=== PATIENT | female | born 1995 | race African-American/Black ===

== ENCOUNTER 2017-01-25 15:09 | Inpatient (IN) ==
[2017-01-25] MEDS ORDERED: MEPERIDINE 50 MG/1 ML VIAL IV PRN (15:24)
[2017-01-25] MEDS ORDERED: ONDANSETRON 4 MG/2 ML VIAL IV PRN (15:24)
[2017-01-25] MEDS ORDERED: DINOPROSTONE VAG GEL 10 MG SYRINGE VAG ONE (15:26)
[2017-01-25] MEDS: LACTATED RINGERS 1,000 ML IV SCH ×2 (15:47→23:05)
[2017-01-25 16:05] LABS: Basophils % 0.3 % (0.0-0.8); Eosinophils # 0.2 10*3/uL (0.0-0.87); Hematocrit 30.3 VOL% (35.7-47.0); Hemoglobin 9.7 GM/DL (12.0-16.0); Immature Granulocytes % 0.5 %; Immature Granulocytes Absolute 0.05 #; Lymphocytes # 2.1 10*3/uL (1.4-4.0); Lymphocytes % 21.2 % (21.3-54.2); Mean Corpuscular Hemoglobin 29 PG (27-34); Mean Corpuscular Volume 89.1 FL (87-102); Mean Platelet Volume 11.3 FL (9.6-12.0); Monocytes # 0.6 10*3/uL (0.11-0.8); Monocytes % 6.3 % (1.7-12.7); Neutrophils # 6.7 10*3/uL (1.4-7.4); Neutrophils % 69.7 % (38.7-73.9); Platelet Count 224 T/CUMM (130-400); Red Cell Distribution Width 14.6 % (9.3-17.3); White Blood Count 9.7 T/CUMM (4-12)
[2017-01-25] MEDS ORDERED: AMPICILLIN INJ 2,000 MG in SODIUM CHLORIDE 0.9% 100 ML IV ONE (16:43)
[2017-01-25 16:47] LABS: Albumin 2.9 G/DL (3.4-5.0); Bilirubin,Total 1.1 MG/DL (0.2-1.0); Calcium 9.2 MG/DL (8.5-10.1); Osmolality,Calculated 275.4 MOS/KG (273-304); Potassium 3.6 MMOL/L (3.5-5.1); Total Protein 7.1 G/DL (6.4-8.3)
--- NOTE | 2017-01-25 17:20 | OB/GYN History & Physical ---
History of Present Illness Chief complaint: For elective induction of labor due to term . History of present illness: Ms. Endy Michelle is a 21 year old female 2 para 1 living 1. Her MANSOOR is for an estimated gestational age of 39 weeks. She presents for elective induction of labor due to term . The risks and benefits of been thoroughly discussed with this patient significant other, plan of care has been discussed with Dr. Narayanan and all parties are in agreement plan. The patient received her care at the [facility] and she received routine care and her course was uneventful. She has had 1 previous vaginal delivery of a liveborn that weighed 9 pounds and she reported no complications with that . labs: She is O+, rubella is immune, RPR is nonreactive, hepatitis B negative, HIV negative, GBS culture negative review of systems is negative with exception of above. Home Medications Medication Instructions Recorded Confirmed Type No Known Home Medications [No 12/05/16 01/25/17 History Known Home Medications] Allergies Allergy/AdvReac Type Severity Reaction Status Date / Time No Known Allergies Allergy Verified 01/25/17 15:22 12 point system: reviewed and no additional remarkable complaints except as stated Medical,Surgical,& Family Hx - Medical History Medical History: noncontributory - Surgical History Surgical History: noncontributory Reproductive Surgeries: Patient denies;: Gynecologic Surgery - Family History Family History: Reports;: Family Diabetes (mother), Family Heart Disease (mother ), Family Hypertension (mother) Denies;: Family Anesthesia Reaction, Family Hematology, Family Psychiatric Problems, Family Stroke, Additional Family History - Social History Smoking Status: Never smoker Frequency of Alcohol Use: None Type of Drug Use: Marijuana (Stopped when she found that she was ) Marital Status: Single Lives With:: Significant Other Functional capacity: independent ambulation Exam RN CLINICAL DOCUMENTATION - Constitutional Vitals: Vital Signs Temp Pulse Resp BP Pulse Ox 01/25/17 16:00 97.8 F 86 18 123/66 100 General appearance: no acute distress - Antepartum / Post Antepartum Exam Cervix - Dilatation: 1 cm Effacement: 50% Station: -2 Rupture: intact Presentation: vtx Heart Rate: 140-150s Abdomen obstetrics: Present: bowel sounds normal Vagina: Present: normal moisture Uterus exam: Present: enlarged Anus/Rectum: Present: normal perianal skin - Respiratory Respiratory exam: Present: clear to auscultation bilaterally - Cardiovascular Cardiovascular exam: Present: regular rate and rhythm - GI/Abdominal GI/Abdominal exam: Present: normal bowel sounds, soft - Extremities Exam Extremities exam: Present: normal inspection - Back Exam Back exam: Present: normal inspection - Neurological Exam Neurological exam: Present: alert, oriented X3 - Psychiatric Psychiatric exam: Present: normal affect, normal mood - Skin Skin exam: Present: normal color, warm Assessment and Plan (1) 39 weeks gestation of Status: Acute Assessment and plan: Admit Prostin gel per protocol IV Pitocin per protocol if indicated Epidural anesthesia if desired Artificial rupture membranes when appropriate Internal monitors if indicated Anticipate Current Visit: Yes Results - Labs CBC & BMP: 01/25/17 15:53 01/25/17 15:53
[2017-01-25] MEDS ORDERED: AMPICILLIN INJ 1,000 MG in SODIUM CHLORIDE 0.9% 100 ML IV SCH (20:45)
[2017-01-25] MEDS: BUTORPHANOL 2 MG/ML VIAL IV PRN (23:05)
[2017-01-26] MEDS ORDERED: OXYTOCIN/LR 20 UNIT/1,000 ML BAG IV SCH (02:00)
[2017-01-26] MEDS: BUTORPHANOL 2 MG/ML VIAL IV PRN (03:55)
[2017-01-26] MEDS: LACTATED RINGERS 1,000 ML IV SCH (04:08)
[2017-01-26] MEDS ORDERED: diphenhydrAMINE 50 MG/1 ML VIAL IV PRN (07:44)
[2017-01-26] MEDS ORDERED: FAMOTIDINE 20 MG/2 ML VIAL IV ONE (07:44)
[2017-01-26] MEDS ORDERED: ePHEDrine 50 MG/ML AMP IV PRN (07:44)
[2017-01-26] MEDS ORDERED: hydrOXYzine HCL 25 MG/1 ML VIAL IM PRN (07:44)
[2017-01-26] MEDS ORDERED: CITRIC ACID/SODIUM CITRATE 30 ML UDCUP PO ONE (07:44)
[2017-01-26] MEDS ORDERED: fentaNYL 2 MCG/ROPIV 0.2% EPID 150 ML EPIDURAL SCH (07:44)
--- NOTE | 2017-01-26 14:52 | Event Note ---
HPI: Ms. Michelle presented to the labor department for elective induction of labor due to term . She received instructions for her induction. The risk and benefits were thoroughly discussed with the patient and plan of care was discussed with Dr. Narayanan, all parties were in agreement plan. Stage I: The patient was admitted she received IV fluids and Prostin gel per protocol. She progressed in labor throughout the night with a CAT 1 tracing. She was eventually started on IV Pitocin per protocol and continue to progress in labor with no complications. The patient subsequently received an epidural for pain control. Artificial rupture of membranes was performed with clear fluid noted. The patient continued to progress in labor with no complications. She had an uneventful course of labor. Stage II: The patient was complete complain of pressure and strong desire to push. She pushed for approximately 10 minutes after which time the 's head was delivered. The mouth and nose were suctioned on the perineum. The remainder the infant was delivered at 1440, a viable male was noted. Apgars were 8 at 1 minute and 9 at 5 minutes. The was placed on the mom' s abdomen for skin to skin bonding. weight was 7 pounds and 12 ounces. A cord pH was obtained and sent to the lab. Stage III: A spontaneous delivery of a Cano placenta with a three-vessel cord noted. The placenta was further examined and appear to be grossly intact with the true knot noted. The vagina and cervix was inspected with no tears or lacerations noted. At the time of dictation mother and baby are in stable condition.
[2017-01-26] MEDS ORDERED: BUTALBITAL/ACETAMIN/CAFFEINE 50-325-40 MG TABLET PO ONE (15:30)
--- NOTE | 2017-01-26 15:46 | Anesthesia Post-Op ---
Anesthesia Post OP - Post Ansesthetic Evaluation Patient seen in post op: Yes Resp: within normal limits CV: within normal limits Mental: within normal limits Temp: within normal limits [id number]: within normal limits Nausea and Vomiting: within normal limits Pain: within normal limits
[2017-01-26] MEDS ORDERED: MEASLES/MUMPS/RUBELLA VACCINE 0.5 ML VIAL SUBCUT ONE (16:21)
[2017-01-26] MEDS ORDERED: ACETAMINOPHEN 325 MG TABLET PO PRN (16:21)
[2017-01-26] MEDS ORDERED: BISACODYL 10 MG SUPP RECTAL PRN (16:21)
[2017-01-26] MEDS ORDERED: WITCH HAZEL PADS 100/JAR TOP PRN (16:21)
[2017-01-26] MEDS ORDERED: LANOLIN 50% CREAM 0.3 OZ TUBE TOP PRN (16:21)
[2017-01-26] MEDS ORDERED: BENZOCAINE 20%/MENTHOL 0.5% SPRAY 56 GM CAN TOP PRN (16:21)
[2017-01-26] MEDS ORDERED: DIPH/TET/ACEL PERT BOOSTER VACCINE 0.5 ML VIAL IM ONE (16:21)
[2017-01-26] MEDS ORDERED: RHO(D) IMMUNE GLOBULIN 300 MCG SYRINGE IM ONE (16:21)
[2017-01-26] MEDS ORDERED: oxyCODONE/ACETAMINOPHEN 5-325 MG TABLET PO PRN (16:21)
[2017-01-26] MEDS ORDERED: HYDROCORTISONE 2.5% RECTAL CREAM 30 GM TUBE TOP PRN (16:21)
[2017-01-26] MEDS: IBUPROFEN 800 MG TABLET PO PRN (19:40)
[2017-01-26] MEDS ORDERED: HYDROmorphone 2 MG/1 ML VIAL IV PRN (19:51)
[2017-01-26] MEDS: DOCUSATE SODIUM 100 MG CAPSULE PO SCH (21:33)
[2017-01-27] MEDS: BUTALBITAL/ACETAMIN/CAFFEINE 50-325-40 MG TABLET PO SCH ×3 (00:24→16:35)
[2017-01-27] MEDS: oxyCODONE/ACETAMINOPHEN 5-325 MG TABLET PO PRN ×3 (04:22→21:24)
[2017-01-27 06:23] LABS: Basophils % 0.2 % (0.0-0.8); Eosinophils # 0.3 10*3/uL (0.0-0.87); Eosinophils % 1.7 % (0.00-10.9); Hematocrit 28.5 VOL% (35.7-47.0); Hemoglobin 9.2 GM/DL (12.0-16.0); Immature Granulocytes % 0.5 %; Immature Granulocytes Absolute 0.08 #; Lymphocytes # 3.4 10*3/uL (1.4-4.0); Lymphocytes % 21.3 % (21.3-54.2); Mean Corpuscular HGB Conc 32.3 GM/DL (32-36); Mean Corpuscular Hemoglobin 29 PG (27-34); Mean Corpuscular Volume 89.3 FL (87-102); Mean Platelet Volume 11.6 FL (9.6-12.0); Monocytes # 1.5 10*3/uL (0.11-0.8); Monocytes % 9.3 % (1.7-12.7); Neutrophils # 10.8 10*3/uL (1.4-7.4); Platelet Count 200 T/CUMM (130-400); Red Blood Count 3.19 MC/CUMM (3.8-5.5); Red Cell Distribution Width 14.6 % (9.3-17.3); White Blood Count 16.1 T/CUMM (4-12)
[2017-01-27] MEDS: IBUPROFEN 800 MG TABLET PO PRN ×2 (08:38→14:42)
[2017-01-27] MEDS: FERROUS SULFATE 325 MG TABLET PO SCH ×2 (08:39→21:23)
[2017-01-27] MEDS: DOCUSATE SODIUM 100 MG CAPSULE PO SCH ×2 (08:39→21:23)
--- NOTE | 2017-01-27 09:03 | OB/GYN Progress Note ---
Assessment and Plan (1) 39 weeks gestation of Status: Acute Assessment and plan: Admit Prostin gel per protocol IV Pitocin per protocol if indicated Epidural anesthesia if desired Artificial rupture membranes when appropriate Internal monitors if indicated Anticipate Current Visit: Yes (2) Vaginal delivery Status: Acute Assessment and plan: Initiate routine orders. 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 Bonding well with . Exam [employer] REPRESENTATIVE - Constitutional Vitals: Vital Signs Temp Pulse Resp BP Pulse Ox 01/27/17 07:47 98.8 F 63 18 127/70 100 01/27/17 07:00 18 01/27/17 06:00 16 01/27/17 04:22 97.9 F 58 L 16 125/75 97 01/27/17 03:00 18 01/27/17 02:00 18 01/27/17 01:24 18 01/27/17 00:24 98.1 F 60 20 130/74 97 01/26/17 23:00 18 01/26/17 19:40 98.8 F 91 H 20 122/70 98 01/26/17 19:00 84 20 130/78 100 01/26/17 18:00 82 20 132/72 100 01/26/17 17:00 89 20 138/80 100 01/26/17 16:30 96 H 20 134/84 100 01/26/17 16:00 99.1 F 80 18 131/78 General appearance: no acute distress - Antepartum / Post Post Exam Breast: bilateral: normal Abdomen obstetrics: Present: bowel sounds normal Vagina: Present: normal moisture, discharge (Light lochia rubra) Uterus exam: Present: enlarged (Fundus firm and midline) Anus/Rectum: Present: normal perianal skin - Head Head exam: Present: normal inspection - Respiratory Respiratory exam: Present: clear to auscultation bilaterally Results - Labs CBC & BMP: 01/27/17 06:03 01/25/17 15:53
[2017-01-28] MEDS: BUTALBITAL/ACETAMIN/CAFFEINE 50-325-40 MG TABLET PO SCH ×2 (00:25→08:29)
[2017-01-28] MEDS: IBUPROFEN 800 MG TABLET PO PRN ×4 (00:25→19:52)
[2017-01-28] MEDS: oxyCODONE/ACETAMINOPHEN 5-325 MG TABLET PO PRN ×2 (03:43→23:00)
[2017-01-28] MEDS: FERROUS SULFATE 325 MG TABLET PO SCH ×2 (08:29→20:30)
[2017-01-28] MEDS: DOCUSATE SODIUM 100 MG CAPSULE PO SCH ×2 (08:29→20:30)
[2017-01-28] MEDS: ACETAMINOPHEN/CODEINE 300-30 MG TABLET PO PRN (10:36)
[2017-01-28] MEDS ORDERED: MAGNESIUM HYDROXIDE SUSP 30 ML UDCUP PO PRN (12:49)
[2017-01-28] MEDS ORDERED: SODIUM CHLORIDE 0.9% 1,000 ML IV ONE (13:30)
[2017-01-28] MEDS ORDERED: MEPERIDINE 50 MG/1 ML VIAL IV PRN (13:31)
[2017-01-28] MEDS ORDERED: PROMETHAZINE 25 MG/1 ML VIAL IM PRN (13:32)
--- NOTE | 2017-01-28 13:42 | Progress Note ---
Family Medicine PN Sub Interval history: Status post vaginal , second postoperative day patient complains of a spinal headache, she was evaluated by anesthesia and felt as though that did not fit the appropriate criteria for this. However patient still complains of pressure in neck discomfort. Will hydrate, initiate Imitrex, and analgesic as appropriate. Possible discharge in the a.m., if symptoms do not improve we will have anesthesia reevaluate. Exam (Progress Note) - Constitutional Vitals: Period Temp Pulse Resp BP Sys/Barkley Pulse Ox Last 24 Hr 97.7 F-99 F 61-77 16-20 114-128/55-88 97-99 Results - Labs CBC & BMP: 01/27/17 06:03 01/25/17 15:53 Quality Measures - VTE Contraindication to Pharmacological VTE Prophylaxis: Clinical assessment deems Pt at low risk, no prophalaxis needed Specialty Discharge - Follow Up or Referrals Follow up with: Giselle Narayanan MD [Physician] - 03/07/17 2:00 pm
[2017-01-28] MEDS: SODIUM CHLORIDE 0.9% 1,000 ML IV SCH (19:27)
[2017-01-29] MEDS: SODIUM CHLORIDE 0.9% 1,000 ML IV SCH (03:39)
[2017-01-29] MEDS: ACETAMINOPHEN/CODEINE 300-30 MG TABLET PO PRN (04:36)
[2017-01-29] MEDS: IBUPROFEN 800 MG TABLET PO PRN ×2 (04:36→12:28)
[2017-01-29 08:29] VITALS: BP 113/55
[2017-01-29] MEDS: DOCUSATE SODIUM 100 MG CAPSULE PO SCH (08:58)
[2017-01-29] MEDS: FERROUS SULFATE 325 MG TABLET PO SCH (08:58)
--- NOTE | 2017-01-29 11:53 | Discharge Summary ---
Hospital Course - Hospital Course Hospital Course: Ms. Michelle presented to the labor department for elective induction of labor due to term . She subsequently delivered a viable with no complications during her labor. However the patient had an epidural and had a suspected spinal headache. She was treated with caffeine and analgesics. Her symptoms have improved. She is bonding well with her infant. Her vital signs and lab values are stable. Her breasts are slightly engorged and she no longer desires to breast-feed therefore she will be discharged home with po antibiotics due to her prior history of mastitis. Her fundus is firm and midline. Her perineum is intact. Her bleeding is minimal with no odor. Contraception options has been discussed with this patient and she desires the Depo-Provera. She will be discharged to home with prescriptions for pain and a follow-up appointment in our office. Diagnosis - Discharge Diagnosis (1) 39 weeks gestation of Status: Acute (2) Vaginal delivery Status: Acute Specialty Discharge - Follow Up or Referrals Follow up with: Giselle Narayanan MD [Physician] - 03/07/17 2:00 pm Discharge Plan - Discharge Data Disposition: Disch To Home/Self Care Condition at Discharge: Stable Discharge Diet: advance to your usual diet, regular diet Activity: resume usual activities as tolerated Hygiene: no restrictions Weight Bearing at Discharge: weight bear as tolerated Driving: no restrictions Contact your physician if you experience:: fever over 101, Redness or swelling, Shortness of breath, pain uncontrolled by pain medications - Discharge Medications New Acetamin/Codeine 300-30 Tab [Tylenol/Codeine #3] 2 tablet PO Q4H PRN #30 tablet PRN Reason: Pain Mild (1-3) cephALEXin [Keflex] 500 mg PO Q6HR #30 capsule Ibuprofen Tab [Motrin Tab] 800 mg PO Q6H PRN #30 tablet PRN Reason: Pain Moderate (4-7) Ferrous Sulfate Tab [Feosol Original Tab] 325 mg PO BID #60 tablet No Action No Known Home Medications [No Known Home Medications] - Follow Up or Referral Follow Up: Giselle Narayanan MD [Physician] - 03/07/17 2:00 pm - Forms/Instructions Instructions: Perineal Care (DC), Vaginal Delivery (DC), Bleeding (DC) Exam - Constitutional Vitals: Period Temp Pulse Resp BP Sys/Barkley Pulse Ox Last 24 Hr 97.6 F-99 F 68-79 18-20 110-135/55-73 96-100 General appearance: no acute distress - Head Head exam: Present: normal inspection - Respiratory Respiratory exam: Present: clear to auscultation bilaterally - Cardiovascular Cardiovascular exam: Present: regular rate and rhythm - GI/Abdominal GI/Abdominal exam: Present: normal bowel sounds, soft - Extremities Exam Extremities exam: Present: normal inspection - Back Exam Back exam: Present: normal inspection - Neurological Exam Neurological exam: Present: alert, normal gait - Psychiatric Psychiatric exam: Present: normal affect, normal mood - Skin Skin exam: Present: normal color, warm DS: Provider Date of admission: 01/25/17 15:24 Primary care physician: . No PCP Attending physician on admission: Giselle Narayanan MD Consults: 01/25/17 15:24 Consult to Anesthesiology [CONS] Routine Consulting Provider: Reason for Anesthesiology: Epidural Consult Comment: Epidural for pain managment 01/26/17 16:21 Consult to [employer] Consulting Services [CONS] Routine Consult [employer]ing Services: Breast Feeding Discharging clinician: Jyoti Garcia CNM Expected date of discharge: 01/29/17
== END 2017-01-29 15:00 | disposition home or self-care (01) | DRG 560 ==
LOC: N.LDOUT 15:09 → N.LD 15:11 → N.OB 01-26 16:01
PROVIDERS: ADMIT Obstetrics & Gynecology; ATTEND Obstetrics & Gynecology

== ENCOUNTER 2019-07-09 05:57 | Inpatient (IN) ==
[2019-07-09] MEDS ORDERED: MEPERIDINE 50 MG/1 ML VIAL IV PRN (06:13)
[2019-07-09] MEDS ORDERED: ONDANSETRON 4 MG/2 ML VIAL IV PRN (06:13)
[2019-07-09] MEDS: LACTATED RINGERS 1,000 ML IV SCH ×2 (06:38→15:58)
[2019-07-09] MEDS: OXYTOCIN/LR 20 UNIT/1,000 ML BAG IV SCH ×2 (06:46→21:38)
[2019-07-09 06:48] LABS: Basophils % 0.4 % (0.0-0.8); Eosinophils # 0.2 10*3/uL (0.0-0.87); Eosinophils % 1.7 % (0.00-10.9); Hemoglobin 9.5 GM/DL (12.0-16.0); Immature Granulocytes % 0.4 %; Immature Granulocytes Absolute 0.04 #; Lymphocytes # 2.2 10*3/uL (1.4-4.0); Lymphocytes % 22.9 % (21.3-54.2); Mean Corpuscular HGB Conc 30.6 GM/DL (32-36); Mean Corpuscular Volume 87.3 FL (87-102); Mean Platelet Volume 11.4 FL (9.6-12.0); Monocytes % 7.7 % (1.7-12.7); Neutrophils % 66.9 % (38.7-73.9); Platelet Count 223 T/CUMM (130-400); Red Blood Count 3.55 MC/CUMM (3.8-5.5); Red Cell Distribution Width 15.7 % (9.3-17.3); White Blood Count 9.7 T/CUMM (4-12)
[2019-07-09 07:19] LABS: Albumin 2.6 G/DL (3.4-5.0); Bilirubin,Total 0.7 MG/DL (0.2-1.0); Osmolality,Calculated 272.7 MOS/KG (273-304); Total Protein 7.5 G/DL (6.4-8.3)
[2019-07-09] MEDS ORDERED: ePHEDrine 50 MG/ML AMP IV PRN (08:34)
[2019-07-09] MEDS ORDERED: FAMOTIDINE 20 MG/2 ML VIAL IV ONE (08:34)
[2019-07-09] MEDS ORDERED: ONDANSETRON 4 MG/2 ML VIAL IV ONE (08:34)
[2019-07-09] MEDS ORDERED: LACTATED RINGERS 1,000 ML IV ONE (08:34)
[2019-07-09] MEDS ORDERED: PROMETHAZINE 25 MG/1 ML VIAL IM ONE (08:34)
[2019-07-09] MEDS ORDERED: hydrOXYzine HCL 25 MG/1 ML VIAL IM PRN (08:34)
[2019-07-09] MEDS ORDERED: diphenhydrAMINE 50 MG/1 ML VIAL IV PRN ×2 (08:34)
[2019-07-09] MEDS ORDERED: NALOXONE 0.4 MG/ML VIAL IV PRN (08:34)
[2019-07-09] MEDS ORDERED: CITRIC ACID/SODIUM CITRATE 30 ML UDCUP PO ONE (08:34)
[2019-07-09] MEDS: fentaNYL 2 MCG/ROPIV 0.2% EPID 100 ML EPIDURAL SCH ×3 (09:10→20:21)
[2019-07-09 11:25] LABS: Apearance,Urine CLEAR (Clear); Bilirubin,Urine Negative (Negative); Blood, Urine Negative (Negative); Glucose,Urine (UA) Negative (Negative); Ketones,Urine 5 mg/dL (Negative); Mucus,Urine Occasional /LPF (Occasional); Nitrite,Urine Negative (Negative); Protein,Urine Negative; Squamous Epithelial Cell,Urine Occasional /HPF (0-10); Urine Color Yellow (Yellow); Urine Specific Gravity 1.014 (1.001-1.035); WBC,Urine <1 /HPF (0-6)
[2019-07-09] MEDS ORDERED: ACETAMINOPHEN 500 MG TABLET PO PRN (16:01)
[2019-07-09] MEDS ORDERED: METHYLERGONOVINE 0.2 MG/1 ML AMP ONE (20:04)
[2019-07-09] MEDS ORDERED: miSOPROStoL 200 MCG TABLET ONE (20:04)
[2019-07-09] MEDS ORDERED: CARBOPROST TROMETHAMINE 250 MCG/ML AMP IM ONE (20:05)
[2019-07-09] MEDS ORDERED: LIDOCAINE 1% 50 ML VIAL ONE (20:24)
[2019-07-09 20:47] LABS: Cord Venous Blood HCO3 22.5 MMOL/L; Cord Venous Blood PCO2 39.2 MMHG; Cord Venous Blood PO2 25.4 MMHG
[2019-07-09] MEDS ORDERED: DIPH/TET/ACEL PERT BOOSTER VACCINE 0.5 ML VIAL IM ONE (23:05)
[2019-07-09] MEDS ORDERED: MEASLES/MUMPS/RUBELLA VACCINE 0.5 ML VIAL SUBCUT ONE (23:05)
[2019-07-09] MEDS ORDERED: oxyCODONE/ACETAMINOPHEN 5-325 MG TABLET PO PRN (23:05)
[2019-07-09] MEDS ORDERED: RHO(D) IMMUNE GLOBULIN 300 MCG SYRINGE IM ONE (23:05)
[2019-07-09] MEDS ORDERED: HYDROCORTISONE 2.5% RECTAL CREAM 30 GM TUBE TOP PRN (23:05)
[2019-07-09] MEDS ORDERED: ACETAMINOPHEN 325 MG TABLET PO PRN (23:05)
[2019-07-09] MEDS ORDERED: BISACODYL 10 MG SUPP RECTAL PRN (23:05)
[2019-07-09] MEDS ORDERED: ONDANSETRON 4 MG TABLET PO PRN (23:05)
[2019-07-09] MEDS ORDERED: OXYTOCIN/LR 20 UNIT/1,000 ML BAG IV ONE (23:05)
[2019-07-09] MEDS ORDERED: WITCH HAZEL PADS 100/JAR TOP PRN (23:05)
[2019-07-09] MEDS ORDERED: LANOLIN 50% CREAM 0.3 OZ TUBE TOP PRN (23:05)
[2019-07-09] MEDS ORDERED: BENZOCAINE 20%/MENTHOL 0.5% SPRAY 56 GM CAN TOP PRN (23:05)
[2019-07-09] MEDS: IBUPROFEN 800 MG TABLET PO PRN (23:13)
[2019-07-09] MEDS: oxyCODONE/ACETAMINOPHEN 5-325 MG TABLET PO PRN (23:13)
[2019-07-10 04:13] LABS: Basophils % 0.2 % (0.0-0.8); Eosinophils # 0.2 10*3/uL (0.0-0.87); Hematocrit 29.9 VOL% (35.7-47.0); Hemoglobin 9.4 GM/DL (12.0-16.0); Immature Granulocytes % 0.5 %; Immature Granulocytes Absolute 0.08 #; Lymphocytes # 2.6 10*3/uL (1.4-4.0); Mean Corpuscular HGB Conc 31.4 GM/DL (32-36); Mean Corpuscular Volume 85.9 FL (87-102); Mean Platelet Volume 11.1 FL (9.6-12.0); Monocytes % 9.7 % (1.7-12.7); Neutrophils % 73.6 % (38.7-73.9); Platelet Count 189 T/CUMM (130-400); Red Blood Count 3.48 MC/CUMM (3.8-5.5); Red Cell Distribution Width 15.7 % (9.3-17.3); White Blood Count 17.4 T/CUMM (4-12)
[2019-07-10] MEDS: IBUPROFEN 800 MG TABLET PO PRN ×2 (09:09→21:31)
[2019-07-10] MEDS: MULTIVITAMIN (PRENATAL) TABLET PO SCH (09:16)
[2019-07-10] MEDS: DOCUSATE SODIUM 100 MG CAPSULE PO SCH ×2 (09:16→21:28)
[2019-07-10] MEDS: oxyCODONE/ACETAMINOPHEN 5-325 MG TABLET PO PRN ×2 (13:42→21:30)
[2019-07-11 07:20] VITALS: BP 140/84
[2019-07-11] MEDS: IBUPROFEN 800 MG TABLET PO PRN (10:22)
[2019-07-11] MEDS: DOCUSATE SODIUM 100 MG CAPSULE PO SCH (10:23)
[2019-07-11] MEDS: MULTIVITAMIN (PRENATAL) TABLET PO SCH (10:28)
[2019-07-11] MEDS ORDERED: INFLUENZA VIRUS VACCINE 0.5 ML SYRINGE IM ONE (10:58)
== END 2019-07-11 11:35 | disposition home or self-care (01) | DRG 560 ==
LOC: N.LDOUT 05:57 → N.LD 06:00 → N.OB 07-10 09:56
PROVIDERS: ADMIT Obstetrics & Gynecology; ATTEND Obstetrics & Gynecology